=== PATIENT | male | born 1940 | race Caucasian/White ===

== ENCOUNTER 2018-07-13 17:17 | Inpatient (IN) | payer MEDICARE, OTHER ==
[~2018-07-13] VITALS: Ht 182.9 cm; Wt 90.1 kg
[~2018-07-13 17:17] MED LIST: AMIO200T40 PO; ATOR20TA PO; CARV-50 PO; FURO40TA4 PO; NAPR220C15 PO; POTA20PA40 PO; RIVA20TA PO; lisinopril PO
[2018-07-13 17:47] LABS: BASOPHILS % (AUTO) 0.5 % (0-1); EOSINOPHILS # (AUTO) 0.4 X10'3 (0-0.9); EOSINOPHILS % (AUTO) 6.1 % (0-6); HEMATOCRIT 43.8 % (42.0-52.0); LYMPHOCYTES # (AUTO) 1.4 X10'3 (1.1-4.8); LYMPHOCYTES % (AUTO) 20.8 % (21-51); MEAN CORPUSCULAR HEMOGLOBIN 31.5 PG (27.0-31.0); MEAN CORPUSCULAR HGB CONC 34.2 % (33.0-36.5); MEAN PLATELET VOLUME 8.7 FL (7.4-10.4); MONOCYTES # (AUTO) 0.8 X10'3 (0-0.9); MONOCYTES % (AUTO) 11.9 % (2-12); NEUTROPHILS # (AUTO) 4.1 X10'3 (1.8-7.7); NEUTROPHILS % (AUTO) 60.7 % (42-75); PLATELET COUNT 138 X10'3 (140-440); RED BLOOD COUNT 4.76 X10'6 (4.70-6.10); RED CELL DISTRIBUTION WIDTH 13.7 % (11.5-14.5); WHITE BLOOD COUNT 6.7 X10'3 (4.5-11.0)
[2018-07-13 17:58] LABS: INR 1.1 INR; PARTIAL THROMBOPLASTIN TIME 28 SECONDS (22-32)
[2018-07-13 18:03] LABS: ALANINE AMINOTRANSFERASE 21 U/L (12-78); ALBUMIN 3.7 G/DL (3.4-5.0); ALBUMIN/GLOBULIN RATIO 1.1 (1.1-1.5); ALKALINE PHOSPHATASE 63 IU/L (46-116); ANION GAP 9 (8-16); ASPARTATE AMINO TRANSFERASE 22 U/L (10-37); BILIRUBIN,TOTAL 1.3 MG/DL (0.1-1.0); BLOOD UREA NITROGEN 25 MG/DL (7-18); BUN/CREATININE RATIO 24.3 (5.4-32.0); CALCIUM 8.8 MG/DL (8.5-10.1); CHLORIDE 106 MMOL/L (99-107); CREATININE 1.03 MG/DL (0.60-1.10); GLUCOSE 96 MG/DL (70-104); POTASSIUM 3.9 MMOL/L (3.5-5.1); SODIUM 142 MMOL/L (135-145); TOTAL CARBON DIOXIDE 27.1 MMOL/L (24-32); TOTAL PROTEIN 7.2 G/DL (6.4-8.2); eGFR 69 ML/MIN
[2018-07-13 18:07] LABS: TROPONIN I < 0.04 NG/ML (0.0-0.05)
[2018-07-13] MEDS ORDERED: iohexol 350MG/ML 100ml bottle IV ONE (18:37)
[2018-07-13] MEDS ORDERED: CARV-49 PO (18:38)
[2018-07-13] MEDS ORDERED: aspirin 325mg tablet PO ONE (18:40)
[2018-07-13] MEDS ORDERED: acetaminophen 325mg tablet PO PRN (21:35)
[2018-07-13] MEDS ORDERED: ondansetron/PF 4mg/2ml inj IV PRN (21:35)
[2018-07-13] MEDS ORDERED: magnesium hydroxide 30ml (MOM) UD suspension PO PRN (21:35)
[2018-07-13] MEDS ORDERED: mag hydrox/Alum hydrox/simeth 30ml oral suspension PO PRN (21:35)
[2018-07-13 21:58] LABS: CHOL/HDL RATIO 4.9 (0.00-4.99); CHOLESTEROL 245 MG/DL (0-200); HDL CHOLESTEROL 50 MG/DL (35-60); LDL CHOLESTEROL 167 MG/DL (50-100); TRIGLYCERIDES 204 MG/DL (20-135)
[2018-07-13 22:10] VITALS: BP 166/62
[2018-07-14 02:00] VITALS: BP 142/58
[2018-07-14 06:00] VITALS: BP 109/86
[2018-07-14 06:32] LABS: BASOPHILS % (AUTO) 0.3 % (0-1); EOSINOPHILS # (AUTO) 0.3 X10'3 (0-0.9); EOSINOPHILS % (AUTO) 6.3 % (0-6); HEMATOCRIT 42.7 % (42.0-52.0); HEMOGLOBIN 14.8 g/dl (14.0-17.9); LYMPHOCYTES # (AUTO) 1.3 X10'3 (1.1-4.8); LYMPHOCYTES % (AUTO) 23.3 % (21-51); MEAN CORPUSCULAR HEMOGLOBIN 31.7 PG (27.0-31.0); MEAN CORPUSCULAR HGB CONC 34.7 % (33.0-36.5); MEAN CORPUSCULAR VOLUME 91.2 FL (78-98); MEAN PLATELET VOLUME 9.1 FL (7.4-10.4); MONOCYTES # (AUTO) 0.7 X10'3 (0-0.9); MONOCYTES % (AUTO) 12.9 % (2-12); NEUTROPHILS # (AUTO) 3.1 X10'3 (1.8-7.7); NEUTROPHILS % (AUTO) 57.2 % (42-75); PLATELET COUNT 127 X10'3 (140-440); RED BLOOD COUNT 4.68 X10'6 (4.70-6.10); RED CELL DISTRIBUTION WIDTH 13.4 % (11.5-14.5); WHITE BLOOD COUNT 5.4 X10'3 (4.5-11.0)
[2018-07-14 06:58] LABS: ALANINE AMINOTRANSFERASE 22 U/L (12-78); ALBUMIN/GLOBULIN RATIO 0.9 (1.1-1.5); ALKALINE PHOSPHATASE 57 IU/L (46-116); ANION GAP 8 (8-16); ASPARTATE AMINO TRANSFERASE 21 U/L (10-37); BILIRUBIN,TOTAL 1.1 MG/DL (0.1-1.0); BLOOD UREA NITROGEN 19 MG/DL (7-18); BUN/CREATININE RATIO 20.7 (5.4-32.0); CHLORIDE 107 MMOL/L (99-107); CREATININE 0.92 MG/DL (0.60-1.10); GLUCOSE 99 MG/DL (70-104); POTASSIUM 3.6 MMOL/L (3.5-5.1); SODIUM 141 MMOL/L (135-145); TOTAL CARBON DIOXIDE 26.4 MMOL/L (24-32); TOTAL PROTEIN 6.3 G/DL (6.4-8.2); eGFR 79 ML/MIN
[2018-07-14] MEDS ORDERED: rivaroxaban 20mg tablet PO SCH (08:00)
[2018-07-14 10:00] VITALS: BP 137/70
[2018-07-14] MEDS: atorvastatin 20mg tablet PO SCH (11:12)
[2018-07-14 14:00] VITALS: BP 121/59
[2018-07-14 18:00] VITALS: BP 144/81
[2018-07-14] MEDS ORDERED: atorvastatin 20mg tablet PO SCH (21:00)
[2018-07-14 22:00] VITALS: BP 139/61
[2018-07-15 02:00] VITALS: BP 163/77
[2018-07-15 06:00] VITALS: BP 136/67
[2018-07-15 07:02] LABS: BASOPHILS % (AUTO) 0.5 % (0-1); EOSINOPHILS # (AUTO) 0.3 X10'3 (0-0.9); EOSINOPHILS % (AUTO) 5.5 % (0-6); HEMATOCRIT 45.1 % (42.0-52.0); HEMOGLOBIN 15.6 g/dl (14.0-17.9); LYMPHOCYTES # (AUTO) 1.3 X10'3 (1.1-4.8); MEAN CORPUSCULAR HEMOGLOBIN 31.4 PG (27.0-31.0); MEAN CORPUSCULAR HGB CONC 34.5 % (33.0-36.5); MEAN CORPUSCULAR VOLUME 91.1 FL (78-98); MEAN PLATELET VOLUME 9.3 FL (7.4-10.4); MONOCYTES # (AUTO) 0.7 X10'3 (0-0.9); MONOCYTES % (AUTO) 12.1 % (2-12); NEUTROPHILS # (AUTO) 3.4 X10'3 (1.8-7.7); NEUTROPHILS % (AUTO) 58.9 % (42-75); PLATELET COUNT 139 X10'3 (140-440); RED BLOOD COUNT 4.95 X10'6 (4.70-6.10); RED CELL DISTRIBUTION WIDTH 13.3 % (11.5-14.5); WHITE BLOOD COUNT 5.8 X10'3 (4.5-11.0)
[2018-07-15 07:24] LABS: ALANINE AMINOTRANSFERASE 20 U/L (12-78); ALBUMIN 3.1 G/DL (3.4-5.0); ALBUMIN/GLOBULIN RATIO 0.9 (1.1-1.5); ALKALINE PHOSPHATASE 57 IU/L (46-116); ANION GAP 4 (8-16); ASPARTATE AMINO TRANSFERASE 18 U/L (10-37); BILIRUBIN,TOTAL 1.1 MG/DL (0.1-1.0); BLOOD UREA NITROGEN 18 MG/DL (7-18); BUN/CREATININE RATIO 17.8 (5.4-32.0); CALCIUM 8.2 MG/DL (8.5-10.1); CHLORIDE 106 MMOL/L (99-107); CREATININE 1.01 MG/DL (0.60-1.10); GLUCOSE 116 MG/DL (70-104); POTASSIUM 3.8 MMOL/L (3.5-5.1); SODIUM 139 MMOL/L (135-145); TOTAL CARBON DIOXIDE 28.7 MMOL/L (24-32); TOTAL PROTEIN 6.4 G/DL (6.4-8.2); eGFR 71 ML/MIN
[2018-07-15] MEDS: atorvastatin 20mg tablet PO SCH (07:36)
[2018-07-15] MEDS ORDERED: aspirin 325mg tablet PO SCH (08:30)
[2018-07-15] MEDS ORDERED: ATOR80TA PO (10:50)
[2018-07-15] MEDS ORDERED: LISI2.5T2 PO (10:50)
== END 2018-07-15 12:05 | disposition home or self-care (01) | DRG 69 ==
LOC: ER 17:18 → ED HOLD 21:31 → ORTHO 4S 22:06
PROVIDERS: ADMIT Internal Medicine; ATTEND Family Medicine
PROC: B3251ZZ Computerized Tomography (CT Scan) of Bilateral Common Carotid Arteries using Low Osmolar Contrast (ICD-10-PCS; principal; 2018-07-13)
PROC: B32G1ZZ Computerized Tomography (CT Scan) of Bilateral Vertebral Arteries using Low Osmolar Contrast (ICD-10-PCS; 2018-07-13)
PROC: B3281ZZ Computerized Tomography (CT Scan) of Bilateral Internal Carotid Arteries using Low Osmolar Contrast (ICD-10-PCS; 2018-07-13)
DX: G45.9 Transient cerebral ischemic attack, unspecified (principal); I50.9 Heart failure, unspecified; I48.91 Unspecified atrial fibrillation; E78.5 Hyperlipidemia, unspecified; Z95.0 Presence of cardiac pacemaker; J45.909 Unspecified asthma, uncomplicated; H26.9 Unspecified cataract; Z79.899 Other long term (current) drug therapy; Z79.01 Long term (current) use of anticoagulants; Z87.01 Personal history of pneumonia (recurrent)
CPT/HCPCS: 36415; 70450; 70496; 70498; 71045; 80053; 80061; 82948; 84484; 85025; 85610; 85730; 87070; 93005; 93306; 97116; 97161; 97530; 99285; J7030; Q9967

== ENCOUNTER 2018-08-02 14:29 | Emergency (ER) | payer MEDICARE, OTHER ==
[~2018-08-02] VITALS: Ht 182.9 cm; Wt 72.0 kg
[~2018-08-02 14:29] MED LIST changes: -AMIO200T40 PO; -ATOR20TA PO; +ATOR80TA PO; +CARV-49 PO; -CARV-50 PO; -FURO40TA4 PO; +LISI2.5T2 PO; -NAPR220C15 PO; -POTA20PA40 PO; -lisinopril PO
[2018-08-02 14:35] VITALS: BP 172/77
[2018-08-02] MEDS ORDERED: LIDOcaine 1.5% w/epinephrine 1:200,000 5ml ampul IJ ONE (15:25)
[2018-08-02] MEDS ORDERED: TETanus/Pertussis (Acell)/Diphther VAC/PF (Tdap-Adult) 0.5ml syringe IM ONE (15:25)
[2018-08-02] MEDS ORDERED: HYDROcodone/acetaminophen 10/325mg tab PO ONE (15:25)
[2018-08-02] MEDS ORDERED: CEPH-571 PO (16:15)
[2018-08-02] MEDS ORDERED: HYDR-565 PO (16:15)
== END 2018-08-02 18:10 | disposition home or self-care (01) ==
LOC: ER 14:30
DX: S61.216A Laceration without foreign body of right little finger without damage to nail, initial encounter (principal); I48.91 Unspecified atrial fibrillation; I50.9 Heart failure, unspecified; J45.909 Unspecified asthma, uncomplicated; W26.8XXA Contact with other sharp object(s), not elsewhere classified, initial encounter; Y93.89 Activity, other specified; Y92.89 Other specified places as the place of occurrence of the external cause; Y99.8 Other external cause status
CPT/HCPCS: 12002; 73140; 90471; 90715; 99284; A6255; A6449; J3490

== ENCOUNTER 2023-06-14 05:40 | Day surgery (SDC) | payer MEDICARE ==
[2023-06-07 16:16] LABS: BASOPHILS % (AUTO) 0.5 % (0-1); EOSINOPHILS # (AUTO) 0.4 X10'3 (0-0.9); EOSINOPHILS % (AUTO) 5.8 % (0-6); LYMPHOCYTES # (AUTO) 1.2 X10'3 (1.1-4.8); LYMPHOCYTES % (AUTO) 16.5 % (21-51); MEAN CORPUSCULAR HEMOGLOBIN 30.7 PG (27.0-31.0); MEAN CORPUSCULAR HGB CONC 33.1 g/dL (33.0-36.5); MEAN CORPUSCULAR VOLUME 92.7 FL (78-98); MEAN PLATELET VOLUME 9.1 FL (7.4-10.4); MONOCYTES % (AUTO) 13.7 % (2-12); NEUTROPHILS # (AUTO) 4.5 X10'3 (1.8-7.7); NEUTROPHILS % (AUTO) 63.5 % (42-75); PRE OP HEMATOCRIT 43.4 % (42.0-52.0); PRE OP HEMOGLOBIN 14.4 g/dL (14.0-17.9); PRE OP PLATELET COUNT 131 X10'3 (140-440); RED BLOOD COUNT 4.69 X10'6 (4.70-6.10); RED CELL DISTRIBUTION WIDTH 15.9 % (11.5-14.5)
[2023-06-07 16:18] LABS: CLARITY,URINE CLEAR (Clear); COLOR,URINE YELLOW (Yellow); GLUCOSE, URINE NEGATIVE (Neg); KETONES,URINE NEGATIVE (Neg); LEUKOCYTE ESTERASE ,URINE NEGATIVE (Neg); NITRITES, URINE NEGATIVE (Neg); OCCULT BLOOD,URINE NEGATIVE (Neg); PH,URINE 5.5 (4.8-8.0); PROTEIN,URINE NEGATIVE (Neg); UROBILINOGEN,URINE 0.2 E.U/dL (0.2-1.0)
[2023-06-07 16:25] LABS: UA COLLECTION TYPE CLN CATCH MIDSTREAM
[2023-06-07 16:30] LABS: ALBUMIN 3.7 G/DL (3.4-5.0); ALBUMIN/GLOBULIN RATIO 1.1 (1.1-1.5); ALKALINE PHOSPHATASE 94 IU/L (46-116); BLOOD UREA NITROGEN 32 MG/DL (7-18); BUN/CREATININE RATIO 34.8 (10.0-20.0); CALCIUM 9.3 MG/DL (8.5-10.1); CHLORIDE 108 MMOL/L (99-107); CREATININE 0.92 MG/DL (0.60-1.10); PRE OP ALT 28 U/L (30-65); PRE OP ANION GAP 9 (8-16); PRE OP AST 25 U/L (10-37); PRE OP BILIRUB, TOTAL 1.4 MG/DL (0.0-1.0); PRE OP GLUCOSE 105 MG/DL (70-104); PRE OP POTASSIUM 4.3 MMOL/L (3.4-5.1); PRE OP SODIUM 147 MMOL/L (135-145); TOTAL CARBON DIOXIDE 29.6 MMOL/L (24-32); TOTAL PROTEIN 7.2 G/DL (6.4-8.2); eGFR 78 ML/MIN
[2023-06-14] VITALS (16 sets, daily range): BP systolic 141–174; BP diastolic 61–85; PULSE 70; RESP 10–16; TEMP 98.9; O2SAT 91–98
[~2023-06-14] VITALS: Ht 182.9 cm; Wt 87.0 kg
[~2023-06-14 05:40] MED LIST changes: +ATOR-2 PO; -ATOR80TA PO; +DOCUMENT DATE & TIME OF BETA-BLOCKER PO ONE; +FURO40TA4 PO; +GABA-530 PO; -LISI2.5T2 PO; +LOSA50TA64 PO; +MULT-1085 PO; +POTA-206 PO; +UBID300C3 PO; +ZINC; +cefazolin 2gm/D5W 100mL 100 ML IV ONE; +famotidine 20mg tablet PO ONE; +ringers solution, lacted 1,000 ML IV SCH
[2023-06-14] MEDS ORDERED: midazolam 1 mg/ML 2ml injection ONE (07:11)
[2023-06-14] MEDS ORDERED: rocuronium 10mg/ml inj IV ONE (07:11)
[2023-06-14] MEDS ORDERED: fentaNYL/PF 50MCG/1 ML 2ML syringe ONE (07:11)
[2023-06-14] MEDS ORDERED: propofol inj 20 ML IV ONE (07:11)
[2023-06-14] MEDS ORDERED: dexamethasone sod phosphate 4mg/ml inj. ONE (07:12)
[2023-06-14] MEDS ORDERED: ondansetron/PF 4mg/2ml inj ONE (07:12)
[2023-06-14] MEDS ORDERED: LIDOcaine 2% (20mg/ml) 5ml vial ONE (07:13)
[2023-06-14] MEDS ORDERED: labetalol 20mg/4ml (5mg/ml) syringe IV PRN (07:20)
[2023-06-14] MEDS ORDERED: ondansetron/PF 4mg/2ml inj IV PRN (07:20)
[2023-06-14] MEDS ORDERED: fentaNYL/PF 50MCG/1 ML 2ML syringe IV PRN ×2 (07:20)
[2023-06-14] MEDS ORDERED: morphine 4 MG/ML inj SYRINge IV PRN (07:20)
[2023-06-14] MEDS ORDERED: morphine 2 MG/ML inj. syringe IV PRN (07:20)
[2023-06-14] MEDS ORDERED: hydrALAZINE 20mg/ml inj. IV PRN (07:20)
[2023-06-14] MEDS ORDERED: ringers solution, lacted 1,000 ML IV SCH (07:20)
[2023-06-14] MEDS ORDERED: desflurane 240ml liquid inh. IH ONE (07:58)
[2023-06-14] MEDS ORDERED: BUPIVAcaine/PF 2.5 mg/ml (0.25%) 30ml vial ONE (08:17)
[2023-06-14] MEDS ORDERED: acetaminophen 1,000mg/100ml IV 100 ML IV ONE (08:17)
[2023-06-14] MEDS ORDERED: glycopyrrolate 0.2mg/ml inj ONE (08:44)
[2023-06-14] MEDS ORDERED: neostigmine methylsulfate 1 MG/ML 10ml vial ONE (08:44)
--- NOTE | 2023-06-14 09:25 | NUR ---
Received from OR via [facility] TO RR 5, accompanied by Anesthesiologist CONCEPCION and report given by Anesthesiolgist. PATIENT ON 10L MASK WITH SPO2 96%. BP HIGH BUT MATCHES PRE OP VS, OK TO GIVE HYDRALAZINE SPARINGLY. PACED AT HR 70. LR RUNNING AT 100%/HR. ABD LASP SITES WITH DERMABOND, CDI. WILL CONTINUE TO MONITOR.
--- NOTE | 2023-06-14 11:20 | NUR ---
PATIENT A&OX4, DENIES PAIN, V/S WNL, CSM INTACT, LAP SITES CDI, PATIENT HAS VOIDED 200CC AND PIV D/C. I HAVE REVIEWED D/C INSTRUCTIONS WITH PATIENT AND AND THEY HAVE VERBALIZED UNDERSTANDING. PATIENT D/C HOME WITH .
== END 2023-06-14 11:20 | disposition home or self-care (01) ==
LOC: PAS 05:40
PROVIDERS: ATTEND Surgery
DX: K40.90 Unilateral inguinal hernia, without obstruction or gangrene, not specified as recurrent (principal); D17.6 Benign lipomatous neoplasm of spermatic cord; E78.5 Hyperlipidemia, unspecified; I48.91 Unspecified atrial fibrillation; I11.0 Hypertensive heart disease with heart failure; I50.22 Chronic systolic (congestive) heart failure; I49.5 Sick sinus syndrome; J45.909 Unspecified asthma, uncomplicated; I08.0 Rheumatic disorders of both mitral and aortic valves; Z95.0 Presence of cardiac pacemaker; Z95.2 Presence of prosthetic heart valve; Z98.890 Other specified postprocedural states; Z96.653 Presence of artificial knee joint, bilateral; Z86.73 Personal history of transient ischemic attack (TIA), and cerebral infarction without residual deficits; Z79.899 Other long term (current) drug therapy; Z80.9 Family history of malignant neoplasm, unspecified
CPT/HCPCS: 36415; 49650; 80053; 81003; 82948; 85025; 93005; C1781; J0131; J0690; J1100; J2250; J2405; J2704; J2710; J3010; J3490; J7030; J7120; Z7506; Z7508; Z7512; A4215; A4618; C1758

== ENCOUNTER 2024-04-02 05:43 | Day surgery (SDC) | payer MEDICARE ==
[2024-03-26 14:42] LABS: BASOPHILS % (AUTO) 0.7 % (0-1); EOSINOPHILS # (AUTO) 0.5 X10'3 (0-0.9); EOSINOPHILS % (AUTO) 7.3 % (0-6); LYMPHOCYTES # (AUTO) 1.1 X10'3 (1.1-4.8); LYMPHOCYTES % (AUTO) 17.2 % (21-51); MEAN CORPUSCULAR HEMOGLOBIN 30.8 PG (27.0-31.0); MEAN CORPUSCULAR VOLUME 93.2 FL (78-98); MEAN PLATELET VOLUME 8.8 FL (7.4-10.4); MONOCYTES # (AUTO) 0.8 X10'3 (0-0.9); MONOCYTES % (AUTO) 12.3 % (2-12); NEUTROPHILS # (AUTO) 4.1 X10'3 (1.8-7.7); NEUTROPHILS % (AUTO) 62.5 % (42-75); PRE OP HEMATOCRIT 41.1 % (42.0-52.0); PRE OP HEMOGLOBIN 13.6 g/dL (14.0-17.9); PRE OP PLATELET COUNT 140 X10'3 (140-440); PRE OP WHITE BLOOD COUNT 6.5 10'3 (4.8-10.8); RED BLOOD COUNT 4.41 X10'6 (4.70-6.10); RED CELL DISTRIBUTION WIDTH 15.8 % (11.5-14.5)
[2024-03-26 15:00] LABS: PRE OP INR 1.2 INR; PRE OP PROTIME 13.1 SECONDS (9.0-12.0)
[2024-03-26 15:07] LABS: ALBUMIN 3.2 G/DL (3.4-5.0); ALBUMIN/GLOBULIN RATIO 0.8 (1.1-1.5); ALKALINE PHOSPHATASE 102 IU/L (46-116); BLOOD UREA NITROGEN 24 MG/DL (7-18); BUN/CREATININE RATIO 27.9 (10.0-20.0); CALCIUM 8.5 MG/DL (8.5-10.1); CHLORIDE 106 MMOL/L (99-107); CREATININE 0.86 MG/DL (0.60-1.10); PRE OP ALT 22 U/L (30-65); PRE OP ANION GAP 6 (8-16); PRE OP AST 27 U/L (10-37); PRE OP BILIRUB, TOTAL 1.2 MG/DL (0.0-1.0); PRE OP GLUCOSE 113 MG/DL (70-104); PRE OP POTASSIUM 3.9 MMOL/L (3.4-5.1); PRE OP SODIUM 140 MMOL/L (135-145); TOTAL CARBON DIOXIDE 28.1 MMOL/L (24-32); TOTAL PROTEIN 7.3 G/DL (6.4-8.2); eGFR 84 ML/MIN
[2024-04-02] VITALS (40 sets, daily range): BP systolic 122–160; BP diastolic 58–80; PULSE 70–79; RESP 12–24; TEMP 96.8–98.1; O2SAT 94–99
[~2024-04-02] VITALS: Ht 182.9 cm; Wt 85.5 kg
[2024-04-02] MEDS: DOCUMENT DATE & TIME OF BETA-BLOCKER PO ONE (05:30)
[2024-04-02] MEDS: cefazolin 2gm/D5W 100mL 100 ML IV ONE (05:30)
[~2024-04-02 05:43] MED LIST changes: -DOCUMENT DATE & TIME OF BETA-BLOCKER PO ONE; -ZINC; -cefazolin 2gm/D5W 100mL 100 ML IV ONE; -famotidine 20mg tablet PO ONE; -ringers solution, lacted 1,000 ML IV SCH
[2024-04-02] MEDS: ringers solution, lacted 1,000 ML IV SCH ×2 (06:12→12:34)
[2024-04-02] MEDS: famotidine 20mg tablet PO ONE (06:13)
[2024-04-02] MEDS: tranexamic acid inj. 1,000 MG in normal saline IV soln 100ML IV ONE (06:15)
[2024-04-02] MEDS ORDERED: magnesium hydroxide 30ml (MOM) UD suspension PO PRN (06:55)
[2024-04-02] MEDS ORDERED: diphenhydrAMINE 25mg capsule PO PRN (06:55)
[2024-04-02] MEDS: potassium cl 20mEq in 1/2 NS 1,000 ML IV SCH (06:55)
[2024-04-02] MEDS ORDERED: ondansetron/PF 4mg/2ml inj IV PRN ×2 (06:55→07:35)
[2024-04-02] MEDS ORDERED: bisacodyl 10mg suppository rectal RC PRN (06:55)
[2024-04-02] MEDS ORDERED: naloxone 0.4 mg/ml inj IV PRN (06:55)
[2024-04-02] MEDS ORDERED: acetaminophen 325mg tablet PO PRN (06:55)
[2024-04-02] MEDS ORDERED: cloNIDine hcl/PF 100mcg/ml inj ONE (07:08)
[2024-04-02] MEDS ORDERED: fentaNYL/PF 50MCG/1 ML 2ML syringe ONE (07:09)
[2024-04-02] MEDS ORDERED: sevoflurane 250ml liquid IH ONE (07:10)
[2024-04-02] MEDS ORDERED: midazolam 1 mg/ML 2ml injection ONE (07:12)
[2024-04-02] MEDS ORDERED: morphine 2 MG/ML inj. syringe IV PRN (07:35)
[2024-04-02] MEDS ORDERED: meperidine/PF 25mg/ml syringe IV PRN ×3 (07:35)
[2024-04-02] MEDS ORDERED: proCHLORperazine 10 MG/2 ml inj IV PRN (07:35)
[2024-04-02] MEDS ORDERED: hydrALAZINE 20mg/ml inj. IV PRN (07:35)
[2024-04-02] MEDS ORDERED: morphine 4 MG/ML inj SYRINge IV PRN (07:35)
[2024-04-02] MEDS ORDERED: labetalol 20mg/4ml (5mg/ml) syringe IV PRN (07:35)
[2024-04-02] MEDS ORDERED: LIDOcaine 2% (20mg/ml) 5ml vial ONE (07:55)
[2024-04-02] MEDS ORDERED: ROPIVAcaine 0.5% (5mg/ml) 30ml vial ONE (07:55)
[2024-04-02] MEDS ORDERED: LIDOcaine 1%/PF 5ML 10 MG/ML VIAL ONE (07:55)
[2024-04-02] MEDS ORDERED: propofol inj 20 ML IV ONE (07:55)
[2024-04-02] MEDS ORDERED: rocuronium 10mg/ml inj IV ONE (07:55)
[2024-04-02] MEDS ORDERED: ondansetron/PF 4mg/2ml inj ONE (07:55)
[2024-04-02] MEDS ORDERED: dexamethasone sod phosphate 4mg/ml inj. ONE (07:56)
[2024-04-02] MEDS ORDERED: vancomycin 1,000mg inj ONE (08:11)
[2024-04-02] MEDS: vancomycin 1,000mg inj IVT ONE (08:12)
[2024-04-02] MEDS ORDERED: methylene blue (5mg/ml) 50mg/10ml ampul IV ONE (08:39)
[2024-04-02] MEDS: acetaminophen 1,000mg/100ml IV 100 ML IV ONE (10:18)
[2024-04-02] MEDS: cefazolin 2gm/D5W 100mL 100 ML IV SCH (16:41)
[2024-04-02] MEDS: atorvastatin 20mg tablet PO SCH (20:35)
[2024-04-02] MEDS: losartan 50mg tablet PO SCH (20:36)
[2024-04-02] MEDS: gabapentin 100mg capsule PO SCH (20:36)
[2024-04-02] MEDS: carvedilol 6.25mg tablet PO SCH (20:36)
[2024-04-03 00:56] VITALS: TEMP 98.2
[2024-04-03 01:59] VITALS: BP 158/74; PULSE 69; RESP 16; TEMP 97.7; O2SAT 95
[2024-04-03 04:05] VITALS: TEMP 98.2
[2024-04-03] MEDS: HYDROcodone/acetaminophen 5mg/325mg tablet PO PRN ×2 (04:41→09:45)
[2024-04-03 06:00] VITALS: BP 127/79; PULSE 69; RESP 19; TEMP 96.7; O2SAT 95
[2024-04-03 07:24] LABS: BASOPHILS % (AUTO) 0.1 % (0-1); EOSINOPHILS % (AUTO) 0 % (0-6); HEMATOCRIT 37.7 % (42.0-52.0); HEMOGLOBIN 12.6 g/dl (14.0-17.9); LYMPHOCYTES # (AUTO) 0.8 X10'3 (1.1-4.8); LYMPHOCYTES % (AUTO) 7.2 % (21-51); MEAN CORPUSCULAR HEMOGLOBIN 30.9 PG (27.0-31.0); MEAN CORPUSCULAR HGB CONC 33.3 g/dL (33.0-36.5); MEAN CORPUSCULAR VOLUME 92.8 FL (78-98); MEAN PLATELET VOLUME 9.1 FL (7.4-10.4); MONOCYTES # (AUTO) 1.1 X10'3 (0-0.9); MONOCYTES % (AUTO) 9.8 % (2-12); NEUTROPHILS # (AUTO) 8.9 X10'3 (1.8-7.7); NEUTROPHILS % (AUTO) 82.9 % (42-75); PLATELET COUNT 132 X10'3 (140-440); RED BLOOD COUNT 4.06 X10'6 (4.70-6.10); RED CELL DISTRIBUTION WIDTH 15.6 % (11.5-14.5); WHITE BLOOD COUNT 10.7 X10'3 (4.5-11.0)
[2024-04-03 07:45] VITALS: RESP 18
[2024-04-03] MEDS: furosemide 40mg tablet PO SCH (08:00)
[2024-04-03] MEDS: potassium chloride 10mEq ER tablet PO SCH (08:00)
[2024-04-03] MEDS ORDERED: UBIDECARENONE 300 MG PO SCH (08:00)
[2024-04-03 08:02] LABS: ALANINE AMINOTRANSFERASE 15 U/L (12-78); ALBUMIN 2.8 G/DL (3.4-5.0); ALBUMIN/GLOBULIN RATIO 0.7 (1.1-1.5); ALKALINE PHOSPHATASE 80 IU/L (46-116); ANION GAP 8 (8-16); ASPARTATE AMINO TRANSFERASE 27 U/L (10-37); BILIRUBIN,TOTAL 0.8 MG/DL (0.1-1.0); BLOOD UREA NITROGEN 21 MG/DL (7-18); BUN/CREATININE RATIO 26.6 (10.0-20.0); CALCIUM 8.5 MG/DL (8.5-10.1); CHLORIDE 103 MMOL/L (99-107); CREATININE 0.79 MG/DL (0.60-1.10); GLUCOSE 139 MG/DL (70-104); POTASSIUM 4.6 MMOL/L (3.5-5.1); SODIUM 136 MMOL/L (135-145); TOTAL CARBON DIOXIDE 25.1 MMOL/L (24-32); TOTAL PROTEIN 6.7 G/DL (6.4-8.2); eCRCL 74 ML/MIN; eGFR > 90 ML/MIN
[2024-04-03] MEDS: multivitamins, therapeutics tablet PO SCH (10:22)
[2024-04-03 10:45] VITALS: RESP 16
[2024-04-03] MEDS ORDERED: rivaroxaban 20mg tablet PO SCH (17:00)
== END 2024-04-03 10:51 | disposition home or self-care (01) ==
LOC: PAS 05:43 → UNDOADMOB 07:01 → PACU 07:01 → UNDOADMOB 12:00 → PACU 12:00 → ORTHO 4S 14:10 → UNDODISOB 04-03 10:51 → PAS 04-03 10:51
PROVIDERS: ATTEND Specialist
DX: M19.012 Primary osteoarthritis, left shoulder (principal); G89.18 Other acute postprocedural pain; I10 Essential (primary) hypertension; J45.909 Unspecified asthma, uncomplicated; I48.91 Unspecified atrial fibrillation; I20.9 Angina pectoris, unspecified; M19.90 Unspecified osteoarthritis, unspecified site; Z86.73 Personal history of transient ischemic attack (TIA), and cerebral infarction without residual deficits; Z79.01 Long term (current) use of anticoagulants; Z79.899 Other long term (current) drug therapy; Z96.653 Presence of artificial knee joint, bilateral; Z98.890 Other specified postprocedural states
CPT/HCPCS: 23430; 23472; 36415; 64415; 71046; 73030; 80053; 82948; 85025; 85610; 85730; 86885; 86900; 86901; 87081; 97110; 97161; 97530; A4565; A4615; A4618; A6402; A6455; A7000; C1716; J0131; J0690; J0735; J1100; J2001; J2250; J2405; J2704; J2710; J2795; J3010; J3370; J3480; J3490; J7030; J7120; Q9968; Z7506; Z7508; Z7512; Z7610; 76000; A6449

== ENCOUNTER 2024-11-07 15:36 | Outpatient (CLI) | payer MEDICARE ==
[~2024-11-07 15:36] MED LIST changes: +POTA-192 PO
== END 2024-11-07 23:59 | disposition home or self-care (01) ==
LOC: RAD 15:36
PROVIDERS: ATTEND Physician Assistant
DX: J18.9 Pneumonia, unspecified organism (principal); J90 Pleural effusion, not elsewhere classified; J98.11 Atelectasis; R06.02 Shortness of breath
CPT/HCPCS: 71046